=== PATIENT | female | born 1975 | race American Indian/Alaskan Native ===

== ENCOUNTER 2017-07-02 10:46 | Inpatient (IN) | payer OTHER ==
[2017-07-02] MEDS ORDERED: MethylPREDNISolone 40 mg Vial IVP STA (11:32)
--- NOTE | 2017-07-02 11:32 | C.PDOC ---
History Of Present Illness 42 y/o female with history of Sarcoidosis presents to ED with complaints of sob and wheezing. Patient was sent to ED from urgent care for evaluation and denies fever, chest pain, cough, nausea or any other complaints at this time. Time Seen by Provider: 07/02/17 11:27 Chief Complaint (Nursing): Shortness Of Breath History Per: Patient History/Exam Limitations: no limitations Onset/Duration Of Symptoms: Hrs Current Symptoms Are (Timing): Still Present Past Medical History Reviewed: Historical Data, Nursing Documentation, Vital Signs Vital Signs: Last Vital Signs Temp 98.2 F 07/03/17 15:37 Pulse 90 07/03/17 15:37 Resp 20 07/03/17 15:37 BP 126/83 07/03/17 15:37 Pulse Ox 98 07/03/17 15:37 - Medical History PMH: No Chronic Diseases Surgical History: No Surg Hx Family History: States: No Known Family Hx - Social History Hx Alcohol Use: No Hx Substance Use: Yes - Immunization History Hx Tetanus Toxoid Vaccination: No Hx Influenza Vaccination: No Hx Pneumococcal Vaccination: No Review Of Systems Constitutional: Negative for: Fever, Chills Cardiovascular: Negative for: Chest Pain Respiratory: Positive for: Shortness of Breath, Wheezing. Negative for: Cough Gastrointestinal: Negative for: Nausea, Vomiting Skin: Negative for: Rash Physical Exam - Physical Exam Appears: Non-toxic, No Acute Distress Skin: Warm, Dry, No Rash Head: Atraumatic, Normacephalic Oral Mucosa: Moist Neck: Supple Chest: Symmetrical Cardiovascular: Rhythm Regular Respiratory: No Rales, No Rhonchi, Wheezing (Diffuse) Gastrointestinal/Abdominal: Soft, No Tenderness, No Guarding, No Rebound Extremity: No Pedal Edema, Capillary Refill (<2 seconds) Neurological/Psych: Oriented x3 ED Course And Treatment - Laboratory Results Result Diagrams: 07/03/17 06:11 07/03/17 06:11 O2 Sat by Pulse Oximetry: 100 (RA) Pulse Ox Interpretation: Normal Medical Decision Making Medical Decision Making: sarcodosis, weheezing- nebs steridods perc neg nsr [address] t wave changes persistent wheezing, pt will need admission for iv steriods Disposition - Disposition Disposition: HOSPITALIZED Disposition Time: 03:00 Condition: FAIR - Clinical Impression Clinical Impression: Sarcoidosis, COPD exacerbation - Scribe Statement The provider has reviewed the documentation as recorded by the Scribe Maricsa Kohler All medical record entries made by the Ruba were at my direction and personally dictated by me. I have reviewed the chart and agree that the record accurately reflects my personal performance of the history, physical exam, medical decision making, and the department course for this patient. I have also personally directed, reviewed, and agree with the discharge instructions and disposition. Decision To Admit - Pt Status Changed To: Hospital Disposition Of: Inpatient - Admit Certification Admit to Inpatient:: After my assessment, the patient will require hospitalization for at least two midnights. This is because of the severity of symptoms shown, intensity of services needed, and/or the medical risk in this patient being treated as an outpatient. - InPatient: Physician Admission Certification: I certify that this patient requires 2 or more midnights of care for the following reason:: needs iv steriods - . Bed Request Type: Telemetry Admitting Physician: En Ramos Jr. Patient Diagnosis: Sarcoidosis
[2017-07-02] MEDS ORDERED: Albuterol-Ipratrop 3 mg / 0.5 (3 ml) UD INH STA ×2 (11:33)
[2017-07-02] MEDS ORDERED: Albuterol-Ipratrop 3 mg / 0.5 (3 ml) UD ONE ×3 (11:46→19:32)
[2017-07-02 12:00] LABS: BASO # 0.1 K/uL (0.0-0.2); BASO % 0.9 % (0.0-2.0); EOS # 0.1 K/uL (0.0-0.7); EOS % 0.4 % (0.0-4.0); LYMPH # 0.2 K/uL (1.0-4.3); LYMPH % 1.8 % (20.0-40.0); MEAN CELL VOLUME 94.2 fL (81.0-99.0); MEAN CORPUSCULAR HEMOGLOBIN 31.8 pg (27.0-31.0); MEAN CORPUSCULAR HGB CONC 33.8 g/dL (33.0-37.0); MEAN PLATELET VOLUME 8.3 fL (7.2-11.7); MONO # 0.5 K/uL (0.0-0.8); MONO % 3.9 % (0.0-10.0); NEUT # 10.9 K/uL (1.8-7.0); PLATELET COUNT 274 K/uL (130-400); RBC 3.78 Mil/uL (3.80-5.20); WHITE BLOOD COUNT 11.8 K/uL (4.8-10.8)
[2017-07-02 12:10] LABS: PROTHROMBIN TIME 11.9 SECONDS (9.7-12.2)
[2017-07-02 12:17] LABS: BANDS 1 % (0-2); LYMPHOCYTE 1 % (20-40); MONOCYTE 5 % (0-10); NEUTROPHIL 93 % (50-75); OVALOCYTES SLIGHT; PLATELET ESTIMATE NORMAL (NORMAL); TOTAL CELLS COUNTED 100
--- NOTE | 2017-07-02 12:17 | RAD ---
HISTORY: Chest pain. COMPARISON: No prior. TECHNIQUE: Chest PA and lateral FINDINGS: LUNGS: . No focal consolidation. Mild biapical pleural thickening PLEURA: No significant pleural effusion identified. No pneumothorax apparent. CARDIOVASCULAR: Normal. OSSEOUS STRUCTURES: No significant abnormalities. VISUALIZED UPPER ABDOMEN: Normal. OTHER FINDINGS: None. IMPRESSION: No focal consolidation. Mild biapical pleural thickening
[2017-07-02 12:18] LABS: ALB/GLOB RATIO 1.1 (1.0-2.1); ALT/SGPT 24 U/L (9-52); AST/SGOT 21 U/L (14-36); BLOOD UREA NITROGEN 9 mg/dL (7-17); CALCIUM 8.7 mg/dl (8.6-10.4); GFR AFRICAN-AMERICAN > 60; GFR NON-AFRICAN AMERICAN > 60
[2017-07-02] MEDS: Albuterol-Ipratrop 3 mg / 0.5 (3 ml) UD INH STA (12:20)
[2017-07-02 12:29] LABS: B-TYPE NATRIURETIC PEPTIDE 143 pg/mL (0-450)
[2017-07-02 12:49] LABS: HCG,QUALITATIVE URINE NEGATIVE (NEGATIVE)
[2017-07-02 12:55] LABS: SQUAMOUS EPITHIAL < 1 /hpf (0-5); URINE BACTERIA RARE (<OCC); URINE BILIRUBIN NEGATIVE (NEGATIVE); URINE BLOOD 1+ (NEGATIVE); URINE CLARITY Clear (Clear); URINE COLOR Yellow (YELLOW); URINE GLUCOSE (UA) NORMAL (Normal); URINE LEUKOCYTE ESTERASE NEG Leu/uL (Negative); URINE NITRATE NEGATIVE (NEGATIVE); URINE PROTEIN NEGATIVE (NEGATIVE); URINE UROBILINOGEN NORMAL mg/dL (0.2-1.0)
[2017-07-02] MEDS ORDERED: MethylPREDNISolone 40 mg Vial IV SCH ×2 (14:45→20:00)
--- NOTE | 2017-07-02 15:01 | CP.PCM.HP ---
History of Present Illness - History of Present Illness History of Present Illness: PGY-1 H&P for Dr. 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 Patient reports that this began yesterday as she went to work. She became short of breath and experienced dry cough as she went to work. Last night, this worsened. Patient went to an urgent care center and received a nebulizer treatment. She did not improve and was subsequently sent to the emergency room. At the ED, patient received 3 nebulizer treatments and a dose of solumedrol. Patient states that with the solumedrol, she can now lay down whereas before she could not. Laying down exacerbates her dyspnea and sitting upright relieves it. Patient previously taking steroids for her sarcoidosis but stopped in January 2017 due to musculoskeletal side effects. She is on Acthar gel IM injectable every other day and is being managed by Dr. Ezequiel Winn. 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 Smokes marijuana to help with the sarcoid. Denies alcohol. Family Hx: Father had cholangiocarcinoma. Aunt with COPD. PMD/Aquaculture Farmer: Dr. Ezequiel Winn [phone] Home med: Acthar gel injectable every other day Present on Admission - Present on Admission Any Indicators Present on Admission: No Review of Systems - Constitutional Constitutional: absent: Chills, Fever - EENT Eyes: absent: Change in Vision Ears: absent: Decreased Hearing Nose/Mouth/Throat: absent: Nasal Congestion - Cardiovascular Cardiovascular: Chest Pain (chest tightness) - Respiratory Respiratory: Cough (dry), Dyspnea, Wheezing - Gastrointestinal Gastrointestinal: absent: Abdominal Pain, Constipation, Diarrhea, Nausea, Vomiting - Genitourinary Genitourinary: absent: Dysuria - Musculoskeletal Musculoskeletal: absent: Back Pain - Integumentary Integumentary: absent: Rash - Neurological Neurological: absent: Dizziness, Weakness - Psychiatric Psychiatric: absent: Anxiety - Endocrine Endocrine: absent: Palpitations Past Patient History - Past Social History Smoking Status: Never Smoked - PULMONARY Hx Respiratory Disorders: Yes Other/Comment: SARCOIDOSIS - MUSCULOSKELETAL/RHEUMATOLOGICAL Hx Musculoskeletal Disorders: Yes Other/Comment: KNEE PAIN - PSYCHIATRIC Hx Substance Use: Yes - SURGICAL HISTORY Hx Surgeries: Yes Hx Tubal Ligation: Yes Meds Allergies/Adverse Reactions: Allergies Allergy/AdvReac Type Severity Reaction Status Date / Time No Known Allergies Allergy Verified 07/02/17 10:56 Physical Exam - Constitutional Appears: No Acute Distress - Head Exam Head Exam: ATRAUMATIC, NORMOCEPHALIC - Eye Exam Eye Exam: EOMI, PERRL - ENT Exam ENT Exam: Mucous Membranes Moist - Respiratory Exam Respiratory Exam: Wheezes (slight bibasilar wheezes), NORMAL BREATHING PATTERN ( at rest). absent: Rales, Rhonchi - Cardiovascular Exam Cardiovascular Exam: REGULAR RHYTHM, +S1, +S2 - GI/Abdominal Exam GI & Abdominal Exam: Normal Bowel Sounds, Soft. absent: Distended, Tenderness - Extremities Exam Extremities exam: Positive for: pedal pulses present. Negative for: pedal edema , tenderness - Neurological Exam Neurological exam: Alert, CN II-XII Intact, Oriented x3 - Psychiatric Exam Psychiatric exam: Anxious - Skin Skin Exam: Dry, Warm Results - Vital Signs Recent Vital Signs: Last Vital Signs Temp 97.9 F 07/02/17 10:50 Pulse 100 H 07/02/17 14:40 Resp 18 07/02/17 14:40 BP 146/77 07/02/17 14:40 Pulse Ox 100 07/02/17 14:40 - Labs Result Diagrams: 07/02/17 11:57 07/02/17 11:57 Labs: Laboratory Results - last 24 hr 07/02/17 07/02/17 07/02/17 11:33 11:57 11:57 WBC 11.8 H RBC 3.78 L Hgb 12.0 Hct 35.6 MCV 94.2 MCH 31.8 H MCHC 33.8 RDW 14.0 Plt Count 274 MPV 8.3 Neut % (Auto) 93.0 H Lymph % (Auto) 1.8 L [place] % (Auto) 3.9 Eos % (Auto) 0.4 Baso % (Auto) 0.9 Neut # 10.9 H Lymph # 0.2 L [place] # 0.5 Eos # 0.1 Baso # 0.1 Neutrophils % (Manual) 93 H Band Neutrophils % 1 Lymphocytes % (Manual) 1 L Monocytes % (Manual) 5 Platelet Estimate Normal Ovalocytes Slight PT 11.9 INR 1.0 APTT 28 Sodium Potassium Chloride Carbon Dioxide Anion Gap BUN Creatinine Est GFR ( Amer) Est GFR (Non-Af Amer) Random Glucose Calcium Total Bilirubin AST ALT Alkaline Phosphatase Troponin I NT-Pro-B Natriuret Pep Total Protein Albumin Globulin Albumin/Globulin Ratio Urine Color Urine Clarity Urine pH Ur Specific [place] Urine Protein Urine Glucose (UA) Urine Ketones Urine Blood Urine Nitrate Urine Bilirubin Urine Urobilinogen Ur Leukocyte Esterase Urine WBC (Auto) Urine RBC (Auto) Ur Squamous Epith Cells Urine Bacteria Urine HCG, Qual Influenza Typ A,B (EIA) Negative for flu a/b 07/02/17 07/02/17 11:57 12:26 WBC RBC Hgb Hct MCV MCH MCHC RDW Plt Count MPV Neut % (Auto) Lymph % (Auto) [place] % (Auto) Eos % (Auto) Baso % (Auto) Neut # Lymph # [place] # Eos # Baso # Neutrophils % (Manual) Band Neutrophils % Lymphocytes % (Manual) Monocytes % (Manual) Platelet Estimate Ovalocytes PT INR APTT Sodium 134 Potassium 3.4 L Chloride 104 Carbon Dioxide 24 Anion Gap 9 L BUN 9 Creatinine 0.6 L Est GFR ( Amer) > 60 Est GFR (Non-Af Amer) > 60 Random Glucose 87 Calcium 8.7 Total Bilirubin 1.2 AST 21 ALT 24 Alkaline Phosphatase 62 Troponin I < 0.0120 NT-Pro-B Natriuret Pep 143 Total Protein 7.4 Albumin 4.0 Globulin 3.5 Albumin/Globulin Ratio 1.1 Urine Color Yellow Urine Clarity Clear Urine pH 8.0 Ur Specific [place] 1.016 Urine Protein Negative Urine Glucose (UA) Normal Urine Ketones Negative Urine Blood 1+ H Urine Nitrate Negative Urine Bilirubin Negative Urine Urobilinogen Normal Ur Leukocyte Esterase Neg Urine WBC (Auto) 3 Urine RBC (Auto) 5 H Ur Squamous Epith Cells < 1 Urine Bacteria Rare Urine HCG, Qual Negative Influenza Typ A,B (EIA) Assessment & Plan - Assessment and Plan (Free Text) Plan: Dyspnea with Hx of Sarcoidosis Duoneb Q6H Scheduled Solumedrol 60 mg IV Q8H Pulmonary consult, Dr. Corbett, help appreciated D-dimer elevated. CTA PE protocol preliminary read negative for PE Chest tightness EKG showed NSR with no acute ST changes NONA neg x1 f/u NONA x2 Prophylactic Measure Heparin 5000 units SC Q12 Protonix 40 mg PO daily Regular Diet Patient's personal tire stripper/PMD Dr. Ezequiel Winn would like to be kept updated: [phone] Rachel Pace PGY-1
[2017-07-02] MEDS ORDERED: Iodixanol 320 MG/ML 100 ML BOTTLE IV ONE (16:27)
[2017-07-02] MEDS ORDERED: Potassium Chloride 20 mEq ER Tab PO ONE (18:04)
[2017-07-02] MEDS: Potassium Chloride 20 mEq ER Tab PO SCH (18:28)
--- NOTE | 2017-07-02 19:05 | CT ---
EXAM: CT Angiography Chest With Intravenous Contrast EXAM DATE/TIME: Exam ordered 07/02/2017 3:25 PM CLINICAL HISTORY: 42 years old, female; Signs and symptoms; Shortness of breath; Additional info: Elevated d dimer TECHNIQUE: Axial computed tomographic angiography images of the chest with intravenous contrast using pulmonary embolism protocol. All CT scans at this facility use one or more dose reduction techniques, viz.: automated exposure control; ma/kV adjustment per patient size (including targeted exams where dose is matched to indication; i.e. head); or iterative reconstruction technique. MIP reconstructed images were created and reviewed. Coronal and sagittal reformatted images were created and reviewed. CONTRAST: 100 mL of visipaque 320 administered intravenously. COMPARISON: No relevant prior studies available. FINDINGS: Pulmonary arteries: Unremarkable. No pulmonary embolism. Aorta: No acute findings. No thoracic aortic aneurysm. Lungs: Paraseptal type emphysema is noted in the lung apices. Thin reticular opacities at the lung apices suggest scarring. Scattered areas of centrilobular type emphysema are seen bilaterally. Pleural space: Unremarkable. No significant effusion. No pneumothorax. Heart: Unremarkable. No cardiomegaly. No significant pericardial effusion. No evidence of RV dysfunction. Bones/joints: There is a subcortical cyst noted within the right humeral head laterally. No acute fracture. No dislocation. Soft tissues: Unremarkable. Lymph nodes: Unremarkable. No enlarged lymph nodes. Spleen: There are 5 subcentimeter low density lesions seen within the spleen IMPRESSION: 1. No pulmonary embolism. 2. Mild paraseptal and centrilobular type emphysema in both lungs. Scarring at the lung apices. 3. 5 less than 5 mm low density lesions within the spleen. The appearance is nonspecific. Differential diagnostic considerations include multiple hemangiomas, splenic cysts or infection
[2017-07-02] MEDS: Albuterol-Ipratrop 3 mg / 0.5 (3 ml) UD INH SCH (19:29)
[2017-07-02 20:03] LABS: CK-MB 0.23 ng/mL (0.0-3.38)
[2017-07-02] MEDS ORDERED: MethylPREDNISolone 40 mg Vial ONE (20:41)
[2017-07-02] MEDS: MethylPREDNISolone 40 mg Vial IV SCH (20:55)
[2017-07-03] MEDS: Albuterol-Ipratrop 3 mg / 0.5 (3 ml) UD INH SCH ×4 (01:44→19:15)
[2017-07-03] MEDS: MethylPREDNISolone 40 mg Vial IV SCH ×3 (05:43→19:45)
[2017-07-03 06:14] LABS: HEMOGLOBIN 12.4 g/dL (11.0-16.0); LYMPH # 0.3 K/uL (1.0-4.3); LYMPH % 2.6 % (20.0-40.0); MEAN CELL VOLUME 94.5 fL (81.0-99.0); MEAN CORPUSCULAR HEMOGLOBIN 32.3 pg (27.0-31.0); MEAN CORPUSCULAR HGB CONC 34.2 g/dL (33.0-37.0); MEAN PLATELET VOLUME 9.1 fL (7.2-11.7); MONO # 0.2 K/uL (0.0-0.8); MONO % 1.3 % (0.0-10.0); NEUT # 11.3 K/uL (1.8-7.0); NEUT % 96.1 % (50.0-75.0); PLATELET COUNT 261 K/uL (130-400); RBC 3.83 Mil/uL (3.80-5.20); RED CELL DISTRIBUTION WIDTH 14.6 % (11.5-14.5); WHITE BLOOD COUNT 11.8 K/uL (4.8-10.8)
[2017-07-03 06:38] LABS: ALB/GLOB RATIO 1.1 (1.0-2.1); ALBUMIN 4.1 g/dL (3.5-5.0); ALT/SGPT 19 U/L (9-52); AST/SGOT 16 U/L (14-36); BLOOD UREA NITROGEN 12 mg/dL (7-17); GFR AFRICAN-AMERICAN > 60; GFR NON-AFRICAN AMERICAN > 60
[2017-07-03 08:00] VITALS: RESP 20
[2017-07-03 08:30] LABS: LYMPHOCYTE 3 % (20-40); MONOCYTE 1 % (0-10); NEUTROPHIL 96 % (50-75); PLATELET ESTIMATE NORMAL (NORMAL); TOTAL CELLS COUNTED 100
[2017-07-03] MEDS: Pantoprazole 40 mg EC Tab PO SCH (09:59)
[2017-07-03] MEDS: Potassium Chloride 20 mEq ER Tab PO SCH (09:59)
--- NOTE | 2017-07-03 16:03 | CP.PCM.CON ---
History of Present Illness - History of Present Illness History of Present Illness: Patient is a 42 y.o F with PMH of sarcoidosis (diagnosed ten years ago) and ITP who presented from urgent care for worsening dyspnea, chest pain and dry cough. Patient states the symptoms started yesterday when she was at work, but worsened last night after dinner. Patient states cough has improved after Duoneb treatment, and mild improvement of shortness of breath. She also complains of mild substernal chest pain/tightness that worsens with palpation. Patient states that she had trouble drinking water while she was in the ER, due to a feeling of chest tightness. She also endorses feeling weak with exertion. Patient currently only takes an aquagel medication for sarcoidosis every other day, and states that she does not tolerate oral steroids well. Her last flare- up was last week in her bilateral lower extremities. She denies any recent illness. Review of Systems - Review of Systems All systems: reviewed and no additional remarkable complaints except (shortness of breath and cough) Past Patient History - Past Medical History & Family History Past Medical History?: Yes - Past Social History Smoking Status: Former Smoker - CARDIAC Hx Cardiac Disorders: No - PULMONARY Hx Respiratory Disorders: Yes Other/Comment: SARCOIDOSIS - MUSCULOSKELETAL/RHEUMATOLOGICAL Hx Musculoskeletal Disorders: Yes Hx Falls: No Other/Comment: KNEE PAIN - PSYCHIATRIC Hx Substance Use: Yes - SURGICAL HISTORY Hx Surgeries: Yes Hx Tubal Ligation: Yes - ANESTHESIA Hx Anesthesia: Yes Hx Anesthesia Reactions: No Hx Malignant Hyperthermia: No Has any member of the family had a problem w/ anesthesia?: No Meds Allergies/Adverse Reactions: Allergies Allergy/AdvReac Type Severity Reaction Status Date / Time No Known Allergies Allergy Verified 07/02/17 10:56 - Medications Medications: Current Medications Albuterol/Ipratropium (Duoneb 3 Mg/0.5 Mg (3 Ml) Ud) 3 ml INH RQ6 [facility] Last Admin: 07/03/17 13:01 Dose: 3 ml Heparin Sodium (Porcine) (Heparin) 5,000 units SC Q12H [facility] Last Admin: 07/03/17 10:00 Dose: Not Given Methylprednisolone (Solu-Medrol) 60 mg IV Q8H [facility] Last Admin: 07/03/17 13:38 Dose: 60 mg Pantoprazole Sodium (Protonix Ec Tab) 40 mg PO DAILY [facility] Last Admin: 07/03/17 09:59 Dose: 40 mg Pneumococcal Polyvalent Vaccine (Pneumovax 23 Vaccine) 0.5 ml IM .ONCE ONE Stop: 07/05/17 10:01 Potassium Chloride (K-Dur 20 Meq Er Tab) 40 meq PO DAILY [facility] Last Admin: 07/03/17 09:59 Dose: 40 meq Physical Exam - Head Exam Head Exam: ATRAUMATIC, NORMOCEPHALIC - Eye Exam Eye Exam: Normal appearance - ENT Exam ENT Exam: Mucous Membranes Moist - Neck Exam Neck exam: Positive for: Normal Inspection - Respiratory Exam Respiratory Exam: Decreased Breath Sounds - Cardiovascular Exam Cardiovascular Exam: REGULAR RHYTHM - GI/Abdominal Exam GI & Abdominal Exam: Normal Bowel Sounds, Soft - Extremities Exam Extremities exam: Positive for: normal inspection - Neurological Exam Neurological exam: Alert, Oriented x3 Results - Vital Signs Recent Vital Signs: Last Vital Signs Temp 98.2 F 07/03/17 15:37 Pulse 90 07/03/17 15:37 Resp 20 07/03/17 15:37 BP 126/83 07/03/17 15:37 Pulse Ox 98 07/03/17 15:37 - Labs Result Diagrams: 07/03/17 06:11 07/03/17 06:11 Labs: Laboratory Results - last 24 hr 07/02/17 07/03/17 07/03/17 19:33 06:11 06:11 WBC 11.8 H RBC 3.83 Hgb 12.4 Hct 36.2 MCV 94.5 MCH 32.3 H MCHC 34.2 RDW 14.6 H Plt Count 261 MPV 9.1 Neut % (Auto) 96.1 H Lymph % (Auto) 2.[address] [place] % (Auto) 1.3 Eos % (Auto) 0.0 Baso % (Auto) 0.0 Neut # 11.3 H Lymph # 0.[address] [place] # 0.2 Eos # 0.0 Baso # 0.0 Neutrophils % (Manual) 96 H Lymphocytes % (Manual) 3 L Monocytes % (Manual) 1 Platelet Estimate Normal RBC Morphology Normal Sodium 137 Potassium 3.8 Chloride 104 Carbon Dioxide 23 Anion Gap 13 BUN 12 Creatinine 0.6 L Est GFR ( Amer) > 60 Est GFR (Non-Af Amer) > 60 Random Glucose 129 H Calcium 9.0 Magnesium 2.0 Total Bilirubin 0.4 AST 16 ALT 19 Alkaline Phosphatase 66 Total Creatine Kinase 88 CK-MB (Mass) 0.23 Troponin I < 0.0120 Total Protein 7.7 Albumin 4.1 Globulin 3.6 Albumin/Globulin Ratio 1.1 Assessment & Plan (1) COPD exacerbation Status: Acute Comment: patient with history of smoking and CAT scan of the chest consistent with emphysema. Continue nebulizer treatment and IV steroids. Follow-up ABG. The need pulmonary function test as outpatient (2) Sarcoidosis Status: Acute Comment: continue IV steroids
--- NOTE | 2017-07-03 16:36 | CP.PCM.PN ---
Subjective - Date & Time of Evaluation Date of Evaluation: 07/03/17 Time of Evaluation: 09:00 - Subjective Subjective: Medicine progress note for Dr. Ramos's service Patient was seen and examined at bedside in no acute distress. Patient reports still feeling short of breath and coughing, especially while ambulating. However , patient says her symptoms improved after receiving steroids. Patient also states her chest feels sore when she coughs. Patient had a headache overnight and in the morning. She reports the headache has decreased, but still asked for tylenol. Patient was assessed again in the afternoon; walked with a pulse oximeter on; patient's oxygen saturation was 83% while resting and increased to 97-98% while ambulating. Patient complained of shortness of breath during this exercise. Patient denies chest pain, abdominal pain, nausea, vomiting, fevers, and leg pain/swelling. Objective - Vital Signs/Intake and Output Vital Signs (last 24 hours): Temp Pulse Resp BP Pulse Ox 98.2 F 90 20 126/83 98 07/03/17 15:37 07/03/17 15:37 07/03/17 15:37 07/03/17 15:37 07/03/17 15:37 Intake and Output: 07/03/17 07/03/17 06:59 18:59 Intake Total 200 Balance 200 - Medications Medications: Current Medications Albuterol/Ipratropium (Duoneb 3 Mg/0.5 Mg (3 Ml) Ud) 3 ml INH RQ6 [facility] Last Admin: 07/03/17 13:01 Dose: 3 ml Heparin Sodium (Porcine) (Heparin) 5,000 units SC Q12H [facility] Last Admin: 07/03/17 10:00 Dose: Not Given Methylprednisolone (Solu-Medrol) 60 mg IV Q8H [facility] Last Admin: 07/03/17 13:38 Dose: 60 mg Pantoprazole Sodium (Protonix Ec Tab) 40 mg PO DAILY [facility] Last Admin: 07/03/17 09:59 Dose: 40 mg Pneumococcal Polyvalent Vaccine (Pneumovax 23 Vaccine) 0.5 ml IM .ONCE ONE Stop: 07/05/17 10:01 Potassium Chloride (K-Dur 20 Meq Er Tab) 40 meq PO DAILY [facility] Last Admin: 07/03/17 09:59 Dose: 40 meq - Labs Labs: 07/03/17 06:11 07/03/17 06:11 PT 11.9 SECONDS (9.7-12.2) 07/02/17 11:57 INR 1.0 07/02/17 11:57 APTT 28 SECONDS (21-34) 07/02/17 11:57 - Constitutional Appears: No Acute Distress - Head Exam Head Exam: ATRAUMATIC, NORMAL INSPECTION - Eye Exam Eye Exam: EOMI, Normal appearance - ENT Exam ENT Exam: Mucous Membranes Moist - Respiratory Exam Respiratory Exam: Decreased Breath Sounds, Clear to Ausculation Bilateral. absent: Rales, Rhonchi, Wheezes, Respiratory Distress - Cardiovascular Exam Cardiovascular Exam: REGULAR RHYTHM, +S1, +S2 - GI/Abdominal Exam GI & Abdominal Exam: Soft, Normal Bowel Sounds. absent: Distended, Firm, Tenderness - Extremities Exam Extremities Exam: Normal Inspection. absent: Pedal Edema, Tenderness - Neurological Exam Neurological Exam: Alert, Awake, Oriented x3 - Psychiatric Exam Psychiatric exam: Normal Affect, Normal Mood - Skin Skin Exam: Dry, Intact, Normal Color, Warm Assessment and Plan - Assessment and Plan (Free Text) Plan: Plan: Dyspnea with Hx of Sarcoidosis Assessment and plan: * Duoneb Q6H Scheduled * Solumedrol 60 mg IV Q8H * Pulmonary consult, Dr. Corbett, help appreciated * D-dimer elevated. * CTA PE protocol: negative for PE Chest tightness Assessment and plan: * EKG showed NSR with no acute ST changes * NONA neg x2 Prophylactic Measure Assessment and plan: * Heparin 5000 units SC Q12 * Protonix 40 mg PO daily * Regular Diet Patient's personal fuel attendant/PMD Dr. Ezequiel Winn would like to be kept updated: [phone] Ramos.
[2017-07-03 17:26] VITALS: O2SAT 100
[2017-07-04] MEDS: Albuterol-Ipratrop 3 mg / 0.5 (3 ml) UD INH SCH ×3 (01:30→13:26)
[2017-07-04] MEDS: MethylPREDNISolone 40 mg Vial IV SCH ×2 (04:43→12:41)
[2017-07-04 07:46] LABS: HEMOGLOBIN 11.3 g/dL (11.0-16.0); LYMPH # 0.3 K/uL (1.0-4.3); LYMPH % 1.8 % (20.0-40.0); MEAN CELL VOLUME 94.5 fL (81.0-99.0); MEAN CORPUSCULAR HEMOGLOBIN 32.9 pg (27.0-31.0); MEAN CORPUSCULAR HGB CONC 34.8 g/dL (33.0-37.0); MEAN PLATELET VOLUME 9.2 fL (7.2-11.7); MONO # 0.5 K/uL (0.0-0.8); MONO % 3.4 % (0.0-10.0); NEUT # 13.3 K/uL (1.8-7.0); NEUT % 94.8 % (50.0-75.0); PLATELET COUNT 231 K/uL (130-400); RBC 3.44 Mil/uL (3.80-5.20); RED CELL DISTRIBUTION WIDTH 14.6 % (11.5-14.5)
[2017-07-04 07:56] LABS: ALB/GLOB RATIO 1.2 (1.0-2.1); ALBUMIN 3.6 g/dL (3.5-5.0); ALT/SGPT 20 U/L (9-52); AST/SGOT 16 U/L (14-36); BLOOD UREA NITROGEN 16 mg/dL (7-17); CALCIUM 8.7 mg/dl (8.6-10.4); GFR AFRICAN-AMERICAN > 60; GFR NON-AFRICAN AMERICAN > 60; MAGNESIUM 2.2 mg/dL (1.6-2.3)
[2017-07-04 08:09] VITALS: BP 124/78; PULSE 80; TEMP 98.2
[2017-07-04] MEDS: Potassium Chloride 20 mEq ER Tab PO SCH (09:36)
[2017-07-04] MEDS: Pantoprazole 40 mg EC Tab PO SCH (09:37)
[2017-07-04 10:52] LABS: BANDS 3 % (0-2); LYMPHOCYTE 1 % (20-40); MONOCYTE 5 % (0-10); NEUTROPHIL 91 % (50-75); PLATELET ESTIMATE NORMAL (NORMAL); TOTAL CELLS COUNTED 100
[2017-07-04 10:53] LABS: TOXIC GRANULATION PRESENT
--- NOTE | 2017-07-04 11:47 | CP.PCM.DIS ---
Provider - Provider Date of Admission: 07/02/17 14:18 Attending physician: En Ramos Jr, MD Consults: Pulmonology- Dr. Corbett Time Spent in preparation of Discharge (in minutes): 45 Hospital Course - Lab Results Lab Results: Most Recent Lab Values WBC 14.0 K/uL (4.8-10.8) H 07/04/17 06:55 RBC 3.44 Mil/uL (3.80-5.20) L 07/04/17 06:55 Hgb 11.3 g/dL (11.0-16.0) 07/04/17 06:55 Hct 32.5 % (34.0-47.0) L 07/04/17 06:55 MCV 94.5 fL (81.0-99.0) 07/04/17 06:55 MCH 32.9 pg (27.0-31.0) H 07/04/17 06:55 MCHC 34.8 g/dL (33.0-37.0) 07/04/17 06:55 RDW 14.6 % (11.5-14.5) H 07/04/17 06:55 Plt Count 231 K/uL (130-400) 07/04/17 06:55 MPV 9.2 fL (7.2-11.7) 07/04/17 06:55 Neut % (Auto) 94.8 % (50.0-75.0) H 07/04/17 06:55 Lymph % (Auto) 1.8 % (20.0-40.0) L 07/04/17 06:55 Dougherty % (Auto) 3.4 % (0.0-10.0) 07/04/17 06:55 Eos % (Auto) 0.0 % (0.0-4.0) 07/04/17 06:55 Baso % (Auto) 0.0 % (0.0-2.0) 07/04/17 06:55 Neut # (Auto) 13.3 K/uL (1.8-7.0) H 07/04/17 06:55 Lymph # (Auto) 0.3 K/uL (1.0-4.3) L 07/04/17 06:55 Dougherty # (Auto) 0.5 K/uL (0.0-0.8) 07/04/17 06:55 Eos # (Auto) 0.0 K/uL (0.0-0.7) 07/04/17 06:55 Baso # (Auto) 0.0 K/uL (0.0-0.2) 07/04/17 06:55 Neutrophils % (Manual) 91 % (50-75) H 07/04/17 06:55 Band Neutrophils % 3 % (0-2) H 07/04/17 06:55 Lymphocytes % (Manual) 1 % (20-40) L 07/04/17 06:55 Monocytes % (Manual) 5 % (0-10) 07/04/17 06:55 Toxic Granulation Present 07/04/17 06:55 Platelet Estimate Normal (NORMAL) 07/04/17 06:55 RBC Morphology Normal 07/04/17 06:55 Ovalocytes Slight 07/02/17 11:57 PT 11.9 SECONDS (9.7-12.2) 07/02/17 11:57 INR 1.0 07/02/17 11:57 APTT 28 SECONDS (21-34) 07/02/17 11:57 D-Dimer, Quantitative 422 ng/mlDDU (0-243) H 07/02/17 14:54 Sodium 136 mmol/L (132-148) 07/04/17 06:55 Potassium 4.2 mmol/L (3.6-5.2) 07/04/17 06:55 Chloride 104 mmol/L (98-107) 07/04/17 06:55 Carbon Dioxide 24 mmol/L (22-30) 07/04/17 06:55 Anion Gap 12 (10-20) 07/04/17 06:55 BUN 16 mg/dL (7-17) 07/04/17 06:55 Creatinine 0.6 mg/dL (0.7-1.2) L 07/04/17 06:55 Est GFR ( Amer) > 60 07/04/17 06:55 Est GFR (Non-Af Amer) > 60 07/04/17 06:55 Random Glucose 117 mg/dL (65-105) H 07/04/17 06:55 Calcium 8.7 mg/dl (8.6-10.4) 07/04/17 06:55 Magnesium 2.2 mg/dL (1.6-2.3) 07/04/17 06:55 Total Bilirubin 0.4 mg/dL (0.2-1.3) 07/04/17 06:55 AST 16 U/L (14-36) 07/04/17 06:55 ALT 20 U/L (9-52) 07/04/17 06:55 Alkaline Phosphatase 50 U/L (38-126) 07/04/17 06:55 Total Creatine Kinase 88 U/L (30-135) 07/02/17 19:33 CK-MB (Mass) 0.23 ng/mL (0.0-3.38) 07/02/17 19:33 Troponin I < 0.0120 ng/mL (0.00-0.120) 07/02/17 19:33 NT-Pro-B Natriuret Pep 143 pg/mL (0-450) 07/02/17 11:57 Total Protein 6.5 g/dL (6.3-8.3) 07/04/17 06:55 Albumin 3.6 g/dL (3.5-5.0) 07/04/17 06:55 Globulin 3.0 gm/dL (2.2-3.9) 07/04/17 06:55 Albumin/Globulin Ratio 1.2 (1.0-2.1) 07/04/17 06:55 Urine Color Yellow (YELLOW) 07/02/17 12:26 Urine Clarity Clear (Clear) 07/02/17 12:26 Urine pH 8.0 (5.0-8.0) 07/02/17 12:26 Ur Specific Blackey 1.016 (1.003-1.030) 07/02/17 12:26 Urine Protein Negative mg/dL (NEGATIVE) 07/02/17 12:26 Urine Glucose (UA) Normal mg/dL (Normal) 07/02/17 12:26 Urine Ketones Negative mg/dL (NEGATIVE) 07/02/17 12:26 Urine Blood 1+ (NEGATIVE) H 07/02/17 12:26 Urine Nitrate Negative (NEGATIVE) 07/02/17 12:26 Urine Bilirubin Negative (NEGATIVE) 07/02/17 12:26 Urine Urobilinogen Normal mg/dL (0.2-1.0) 07/02/17 12:26 Ur Leukocyte Esterase Neg Kali/uL (Negative) 07/02/17 12:26 Urine WBC (Auto) 3 /hpf (0-5) 07/02/17 12:26 Urine RBC (Auto) 5 /hpf (0-3) H 07/02/17 12:26 Ur Squamous Epith Cells < 1 /hpf (0-5) 07/02/17 12:26 Urine Bacteria Rare (<OCC) 07/02/17 12:26 Urine HCG, Qual Negative (NEGATIVE) 07/02/17 12:26 Influenza Typ A,B (EIA) Negative for flu a/b (NEGATIVE) 07/02/17 11:33 - Hospital Course Hospital Course: CC: Shortness of breath HPI: This is a 42 year old female with PMHx sarcoidosis (Dx 10 years ago) and 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 Patient reports that this began yesterday as she went to work. She became short of breath and experienced dry cough as she went to work. Last night, this worsened. Patient went to an urgent care center and received a nebulizer treatment. She did not improve and was subsequently sent to the emergency room. At the ED, patient received 3 nebulizer treatments and a dose of solumedrol. Patient states that with the solumedrol, she can now lay down whereas before she could not. Laying down exacerbates her dyspnea and sitting upright relieves it. Patient previously taking steroids for her sarcoidosis but stopped in January 2017 due to musculoskeletal side effects. She is on Acthar gel IM injectable every other day and is being managed by Dr. Ezequiel Winn. PMD/Electrical Controls Engineer: Dr. 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 Smokes marijuana to help with the sarcoid. Denies alcohol. Family Hx: Father had cholangiocarcinoma. Aunt with COPD. Home med: Acthar gel injectable every other day Hospital Course: Patient was admitted on 07/02/17 for shortness of breath and wheezing. In the ED, labs were drawn and patient was given a nebulizer treatment. On labs, D-dimer was found to be elevated, thus CT angio was ordered , which showed no evidence of a PE. EKG showed normal sinus rhythm with no acute ST changes. Troponins were ordered because patient complained of chest, however, troponins were negative. Patient was started on scheduled nebulizer treatments and scheduled solumedrol. Pulmonology was consulted, Dr. Corbett. Patient was seen and examined throughout hospital course. Patient's chest pain, which she described as soreness when coughing, resolved. Patient's oxygen saturation level was evaluated while at rest, followed by her oxygen saturation while walking. Patient's oxygen saturation improved, increasing from 83% to 97- 98% while walking on 07/03/17. Patient was seen and examined on 07/04/17 in no acute distress. Patient reports feeling better, "easier to breath and take a big breath in" and no longer has chest soreness. Patient is stable for discharge to home. Patient must take medrol dose pack as directed and new inhaler, Advair, as prescribed. Patient must follow up with PMD and saw offbearer, Dr. Winn, within one week of discharge. This is a brief summary of the hospital course. Please see EMR for more details. Discharge Exam - Head Exam Head Exam: ATRAUMATIC, NORMAL INSPECTION - Eye Exam Eye Exam: EOMI, Normal appearance - ENT Exam ENT Exam: Mucous Membranes Moist - Respiratory Exam Respiratory Exam: Clear to PA & Lateral, NORMAL BREATHING PATTERN. absent: Rales, Rhonchi, Wheezes, Respiratory Distress - Cardiovascular Exam Cardiovascular Exam: REGULAR RHYTHM, +S1, +S2 - GI/Abdominal Exam GI & Abdominal Exam: Normal Bowel Sounds, Soft. absent: Distended, Firm, Tenderness - Neurological Exam Neurological exam: Alert, Oriented x3 - Psychiatric Exam Psychiatric exam: Normal Affect, Normal Mood - Skin Skin Exam: Dry, Intact, Normal Color, Warm Discharge Plan - Discharge Medications Prescriptions: Fluticasone/Salmeterol 500/50 [Advair Diskus] 1 puff IH DAILY #1 inh Methylprednisolone [Medrol Dose Pack (21 tabs)] 4 mg PO ASDIR #21 mg - Follow Up Plan Condition: GOOD Disposition: HOME/ ROUTINE Instructions: Methylprednisolone (By mouth), Fluticasone/Salmeterol (By breathing), COPD (Chronic Obstructive Pulmonary Disease) (DC), Sarcoidosis (DC) Additional Instructions: Patient is stable for discharge to home. Patient must continue home medications. Patient must start new medications listed below: 1. Medrol Dose Pack- take as directed 2. Advair Diskus 500/50- take 1 puff daily [Prescriptions sent electronically to their pharmacy] Patient must follow up with their saw offbearer, Dr. Winn, within one week of dicharge. Patient must follow up with their PMD within one week of discharge. If symptoms worsen or reoccur, patient should return to the ED.
[2017-07-04] MEDS ORDERED: Pneumococcal 23-Valent Vaccine IM ONE (12:09)
--- NOTE | 2017-07-04 14:56 | CP.PCM.PN ---
Subjective - Date & Time of Evaluation Date of Evaluation: 07/04/17 Time of Evaluation: 13:25 - Subjective Subjective: Patient was seen and examined at bedside. Patient states that shortness of breath and chest tightness has improved. She was able to tolerate walking to the bathroom and back. She states that her appetite has improved as well, however still had sensation of chest tightness with certain foods. Her headache from yesterday has resolved. She denies chest pain, dizziness, nausea. Assessment : Patient is a 42 y.o F with PMH of sarcoidosis (diagnosed ten years ago) and ITP who presented from urgent care for worsening dyspnea, chest pain and dry cough. Most likely due to emphysema as patient is former smoker. Patient also receiving steroids for sarcoidosis. Plan: -CTA showed no PE, mild paraseptal and centrilobular type emphysema in both lungs. Scarring at the lung apices. 5 less than 5 mm low density lesions within the spleen -Continue Duoneb treatment -Continue Solumedrol -CXR showed mild biapical pleural thickening -Follow up [facility] -Outpatient PFT -Will need to follow up with her embedded linux engineer as outpatient- Dr. Ezequiel Winn, Objective - Vital Signs/Intake and Output Vital Signs (last 24 hours): Temp Pulse Resp BP Pulse Ox 98.2 F 80 20 124/78 100 07/04/17 07:15 07/04/17 07:15 07/04/17 07:15 07/04/17 07:15 07/04/17 07:15 Intake and Output: 07/04/17 07/04/17 06:59 18:59 Intake Total 150 Balance 150 - Medications Medications: Current Medications Albuterol/Ipratropium (Duoneb 3 Mg/0.5 Mg (3 Ml) Ud) 3 ml INH RQ6 [facility] Last Admin: 07/04/17 13:26 Dose: 3 ml Heparin Sodium (Porcine) (Heparin) 5,000 units SC Q12H [facility] Last Admin: 07/04/17 09:38 Dose: Not Given Methylprednisolone (Solu-Medrol) 60 mg IV Q8H [facility] Last Admin: 07/04/17 12:41 Dose: 60 mg Pantoprazole Sodium (Protonix Ec Tab) 40 mg PO DAILY [facility] Last Admin: 07/04/17 09:37 Dose: 40 mg Potassium Chloride (K-Dur 20 Meq Er Tab) 40 meq PO DAILY [facility] Last Admin: 07/04/17 09:36 Dose: 40 meq - Labs Labs: 07/04/17 06:55 07/04/17 06:55 PT 11.9 SECONDS (9.7-12.2) 07/02/17 11:57 INR 1.0 07/02/17 11:57 APTT 28 SECONDS (21-34) 07/02/17 11:57 Assessment and Plan (1) COPD exacerbation Status: Acute (2) Sarcoidosis Status: Acute
--- NOTE | 2017-07-05 08:54 | CARD ---
APPROVED REPORT EKG Measurement Heart [id number] <Conclusion> Normal sinus rhythm Normal ECG
[2017-07-05] MEDS ORDERED: Influenza Vaccine 60 mcg/0.5 mL SYR (4YR UP) IM ONE (10:00)
[2017-07-05] MEDS ORDERED: Pneumococcal 23-Valent Vaccine IM ONE (10:00)
== END 2017-07-04 14:30 | disposition home or self-care (01) | DRG 197 ==
LOC: C.ER 10:46 → C.9E 14:18 → C.5S 14:18
PROVIDERS: ADMIT Internal Medicine; ATTEND Internal Medicine
DX: D86.9 Sarcoidosis, unspecified (principal); J44.1 Chronic obstructive pulmonary disease with (acute) exacerbation; Z87.891 Personal history of nicotine dependence; F12.90 Cannabis use, unspecified, uncomplicated